=== PATIENT | female | born 1975 | race African-American/Black ===

== ENCOUNTER 2017-03-06 13:08 | Emergency (ER) | payer MEDICAID, OTHER ==
[~2017-03-06] VITALS: Ht 175.3 cm; Wt 136.0 kg
[~2017-03-06 13:08] MED LIST: PREDNISONE; PROAIR; SINGULAR
[2017-03-06] MEDS ORDERED: METHYLPREDNISOLONE SOD SUCC 125 MG/2 ML VIAL IV STA (13:34)
[2017-03-06] MEDS ORDERED: ALBUTEROL (0.083%) 2.5MG/3ML NEB HHN STA (13:34)
[2017-03-06] MEDS ORDERED: MAGNESIUM 2 G PREMIX 50 ML IV STA (13:34)
[2017-03-06] MEDS ORDERED: IPRATROPIUM BROMIDE (0.02%) 0.5MG/2.5ML NEB HHN STA (13:34)
[2017-03-06 16:08] VITALS: BP 145/78
== END 2017-03-06 16:10 | disposition home or self-care (01) ==
LOC: ER 13:54
DX: J45.901 Unspecified asthma with (acute) exacerbation (principal); I10 Essential (primary) hypertension
CPT/HCPCS: 71010; 94640; 96365; 96375; 99284; J2930; J3475; J7611; Z7610; 94003

== ENCOUNTER 2017-08-08 10:35 | Emergency (ER) | payer MEDICAID ==
[~2017-08-08] VITALS: Ht 170.2 cm; Wt 136.0 kg
[2017-08-08 11:01] VITALS: BP 167/87
== END 2017-08-08 15:01 | disposition left against medical advice (07) ==
LOC: ER 14:29
DX: N93.9 Abnormal uterine and vaginal bleeding, unspecified (principal); Z53.21 Procedure and treatment not carried out due to patient leaving prior to being seen by health care provider
CPT/HCPCS: 81025

== ENCOUNTER 2018-06-18 16:04 | Emergency (ER) | payer MEDICAID ==
[~2018-06-18] VITALS: Ht 175.3 cm; Wt 125.0 kg
[2018-06-18] MEDS ORDERED: IBUPROFEN 600MG TABLET PO ONE (18:15)
[2018-06-18 18:25] VITALS: BP 163/74
== END 2018-06-18 18:30 | disposition home or self-care (01) ==
LOC: ER 16:04
DX: K08.89 Other specified disorders of teeth and supporting structures (principal); I10 Essential (primary) hypertension; J45.909 Unspecified asthma, uncomplicated; Z98.51 Tubal ligation status; Z98.890 Other specified postprocedural states
CPT/HCPCS: 99283